=== PATIENT | male | born 1990 | race Caucasian/White ===

== ENCOUNTER 2017-10-14 13:32 | Observation (INO) | payer OTHER ==
[2017-10-14] MEDS ORDERED: NS 1,000 ML IV ONE (13:53)
[2017-10-14] MEDS ORDERED: HYDROmorphONE/DILAUDID 1 MG/ML INJ IVP ONE ×2 (13:53→15:46)
--- NOTE | 2017-10-14 13:53 | EDPHY ---
H & P Stated Complaint: Abscess - Drained 10/12 on Antibiotics Time Seen by Provider: 10/14/17 13:40 HPI/ROS: CHIEF COMPLAINT: Peritonsillar abscess HISTORY OF PRESENT ILLNESS: The patient is a 27-year-old man with no significant past medical history comes to the emergency department complaining of peritonsillar abscess. He was seen 2 days ago at [facility] Emergency Department. He had it aspirated at that time and was started on clindamycin. He states that it is worsening again. He does not have fever. He has significant pain and will not talk, eat or drink. He does not have any trouble breathing and is handling his secretions. REVIEW OF SYSTEMS: Constitutional: denies: chills, fever, recent illness, recent injury EENTM: See HPI Respiratory: denies: cough, shortness of breath Cardiac: denies: chest pain, irregular heart rate, lightheadedness, palpitations Gastrointestinal/Abdominal: denies: abdominal pain, diarrhea, nausea, vomiting, blood streaked stools Genitourinary: denies: dysuria, frequency, hematuria, pain Musculoskeletal: denies: joint pain, muscle pain Skin: denies: lesions, rash, jaundice, bruising Neurological: denies: headache, numbness, paresthesia, tingling, dizziness, weakness Hematologic/Lymphatic: denies: blood clots, easy bleeding, easy bruising Immunologic/allergic: denies: HIV/AIDS, transplant EXAM: GENERAL: Well-appearing, well-nourished and in no acute distress. HEAD: Atraumatic, normocephalic. EYES: Pupils equal round and reactive to light, extraocular movements intact, sclera anicteric, conjunctiva are normal. ENT: TMs normal, nares patent, difficult time opening mouth. Right swollen erythematous tonsillar pillars with 3 puncture dykes visible. No drainage. NECK: Normal range of motion, supple without lymphadenopathy or JVD. LUNGS: Breath sounds clear to auscultation bilaterally and equal. No wheezes rales or rhonchi. HEART: Regular rate and rhythm without murmurs, rubs or gallops. ABDOMEN: Soft, nontender, normoactive bowel sounds. No guarding, no rebound. No masses appreciated. BACK: No CVA tenderness, no spinal tenderness, step-offs or deformities EXTREMITIES: Normal range of motion, no pitting or edema. No clubbing or cyanosis. NEUROLOGICAL: Cranial nerves II through XII grossly intact. Normal speech, normal gait. 5/5 strength, normal movement in all extremities, normal sensation PSYCH: Normal mood, normal affect. SKIN: Warm, dry, normal turgor, no visible rashes or lesions. Source: Patient Exam Limitations: No limitations - Personal History Current Tetanus Diphtheria and Acellular Pertussis (TDAP): Yes - Medical/Surgical History Hx Asthma: Yes Hx Chronic Respiratory Disease: No Hx Diabetes: No Hx Cardiac Disease: No Hx Renal Disease: No Hx Cirrhosis: No Hx Alcoholism: No Hx HIV/AIDS: No Hx Splenectomy or Spleen Trauma: No Other PMH: med hx-Abscess. surg-left shoulder,wisdom teeth - Family History Significant Family History: No pertinent family hx - Social History Smoking Status: Never smoked Alcohol Use: Sober Drug Use: None Constitutional: Initial Vital Signs Temperature (C) 36.5 C 10/14/17 13:35 Heart Rate 69 10/14/17 13:35 Respiratory Rate 18 10/14/17 13:35 Blood Pressure 157/94 H 10/14/17 13:35 O2 Sat (%) 95 10/14/17 13:35 O2 Delivery Mode Room Air Allergies/Adverse Reactions: No Known Allergies Allergy (Verified 06/08/14 12:48) Home Medications: Medication Instructions Recorded Clindamycin HCl [Clindamycin] 300 mg PO TID 10/14/17 Herbals/Supplements -Info Only 1 ea PO DAILY 10/14/17 Multivitamins [Multivitamin (*)] 1 each PO DAILY 10/14/17 Medical Decision Making - Diagnostics Imaging Results: Imaging Impressions Neck CT 10/14/17 14:05 Impression: 1. Right peritonsillar abscess resulting in moderate mass effect upon the airway. 2. No extension into the retropharyngeal space or involvement of the epiglottis. Findings discussed with Emergency Department physician, Quique Castillo, at 1520 hours 10/14/2017. Imaging: Discussed imaging studies w/ call or contact centre operator Radiologist ED Course/Re-evaluation: I spoke with Karen Grove the PA on for Dr. Mitchell. She will come to evaluate the patient in the ER. She requests clindamycin IV and Decadron and pain medication. 2:05 p.m. Karen Grove evaluated the patient is requesting a CT scan before drainage to evaluate whether not the patient will require OR. 3:20 p.m. I discussed the CT results with Karen Grove who will come to I&D. 3:50 p.m. the patient was I&D by Dr. Mitchell. A significant amount of purulence obtained. They recommended admission to the hospital for IV clindamycin Q 6 and Decadron 10 mg q.8 hours. 4 p.m. I discussed the case with Dr. Conner who agreed to admit. Differential Diagnosis: Partial list of the Differential diagnosis considered include but were not limited to; abscess, phlegmon and although unlikely based on the history and physical exam, I also considered foreign body, sepsis. - Data Points Laboratory Results: Laboratory Results 10/14/17 14:01 10/14/17 14:01 10/14/17 10/14/17 14:01 14:01 WBC 12.18 10^3/uL H 10^3/uL (3.80-9.50) RBC 4.84 10^6/uL 10^6/uL (4.40-6.38) Hgb 15.8 g/dL g/dL (13.7-17.5) Hct 43.9 % % (40.0-51.0) MCV 90.7 fL fL (81.5-99.8) MCH 32.6 pg pg (27.9-34.1) MCHC 36.0 g/dL g/dL (32.4-36.7) RDW 12.1 % % (11.5-15.2) Plt Count 277 10^3/uL 10^3/uL (150-400) MPV 8.8 fL fL (8.7-11.7) Neut % (Auto) 77.0 % H % (39.3-74.2) Lymph % (Auto) 11.2 % L % (15.0-45.0) [place] % (Auto) 10.0 % % (4.5-13.0) Eos % (Auto) 0.7 % % (0.6-7.6) Baso % (Auto) 0.7 % % (0.3-1.7) Nucleat RBC Rel Count 0.0 % % (0.0-0.2) Absolute Neuts (auto) 9.37 10^3/uL H 10^3/uL (1.70-6.50) Absolute Lymphs (auto) 1.36 10^3/uL 10^3/uL (1.00-3.00) Absolute Monos (auto) 1.22 10^3/uL H 10^3/uL (0.30-0.80) Absolute Eos (auto) 0.09 10^3/uL 10^3/uL (0.03-0.40) Absolute Basos (auto) 0.09 10^3/uL 10^3/uL (0.02-0.10) Absolute Nucleated RBC 0.00 10^3/uL 10^3/uL (0-0.01) Immature Gran % 0.4 % % (0.0-1.1) Immature Gran # 0.05 10^3/uL 10^3/uL (0.00-0.10) Sodium 145 mEq/L H mEq/L (134-144) Potassium 3.9 mEq/L mEq/L (3.5-5.2) Chloride 104 mEq/L mEq/L (97-110) Carbon Dioxide 27 mEq/l mEq/l (22-31) Anion Gap 14 mEq/L mEq/L (8-16) BUN 21 mg/dL mg/dL (7-23) Creatinine 0.9 mg/dL mg/dL (0.7-1.3) Estimated GFR > 60 Glucose 86 mg/dL mg/dL (70-100) Calcium 9.4 mg/dL mg/dL (8.5-10.4) Medications Given: Discontinued Medications Dexamethasone (Decadron Injection) 10 mg IVP EDNOW ONE Stop: 10/14/17 13:59 Last Admin: 10/14/17 14:10 Dose: 10 mg Hydromorphone HCl (Dilaudid) 1 mg IVP EDNOW ONE Stop: 10/14/17 13:54 Last Admin: 10/14/17 14:04 Dose: 1 mg Hydromorphone HCl (Dilaudid) 1 mg IVP EDNOW ONE Stop: 10/14/17 15:47 Last Admin: 10/14/17 15:49 Dose: 1 mg Sodium Chloride (Ns) 1,000 mls @ 0 mls/hr IV ONCE ONE; Wide Open PRN Reason: Protocol Stop: 10/14/17 13:54 Last Admin: 10/14/17 14:03 Dose: 1,000 mls Clindamycin Phosphate/Dextrose (Cleocin 900 Mg (Premix)) 50 mls @ 100 mls/hr IV EDNOW ONE PRN Reason: Protocol Stop: 10/14/17 14:27 Last Admin: 10/14/17 14:12 Dose: 50 mls Ondansetron HCl (Zofran) 4 mg IVP EDNOW ONE Stop: 10/14/17 13:58 Last Admin: 10/14/17 14:04 Dose: 4 mg Departure - Departure Disposition: [facility] Acute Clinical Impression: Peritonsillar abscess Condition: Fair
[2017-10-14] MEDS ORDERED: HYDROmorphONE/DILAUDID 1 MG/ML INJ ONE (13:54)
[2017-10-14] MEDS ORDERED: ONDANSETRON 4 MG/2 ML VIAL ONE (13:55)
[2017-10-14] MEDS ORDERED: ONDANSETRON 4 MG/2 ML VIAL IVP ONE (13:57)
[2017-10-14] MEDS ORDERED: CLINDAMYCIN 900 MG/DEXTROSE 50 ML IV ONE (13:58)
[2017-10-14] MEDS ORDERED: DEXAMETHASONE 10 MG/ML VIAL IVP ONE (13:58)
[2017-10-14 14:12] LABS: % IMMATURE GRANULYOCYTES 0.4 % (0.0-1.1); ABSOLUTE IMMATURE GRANULOCYTES 0.05 10^3/uL (0.00-0.10); ADD DIFF? NO; ADD MORPH? NO; ADD SCAN? NO; ATYPICAL LYMPHOCYTE FLAG 10 (0-99); FRAGMENT RBC FLAG 0 (0-99); HEMATOCRIT 43.9 % (40.0-51.0); HEMOGLOBIN 15.8 g/dL (13.7-17.5); LEFT SHIFT FLG 0 (0-99); LIPEMIA HEMOLYSIS FLAG 90 (0-99); MEAN CELL HEMOGLOBIN 32.6 pg (27.9-34.1); MEAN CELL VOLUME 90.7 fL (81.5-99.8); MEAN PLATELET VOLUME 8.8 fL (8.7-11.7); PLATELET CLUMPS FLAG 0 (0-99); PLATELET COUNT 277 10^3/uL (150-400); RED BLOOD CELL COUNT 4.84 10^6/uL (4.40-6.38); RED CELL DISTRIBUTION WIDTH 12.1 % (11.5-15.2)
[2017-10-14 14:23] LABS: ANION GAP 14 mEq/L (8-16); CALCIUM 9.4 mg/dL (8.5-10.4); CARBON DIOXIDE 27 mEq/l (22-31); CHLORIDE 104 mEq/L (97-110); CREATININE 0.9 mg/dL (0.7-1.3); GLOMERULAR FILTRATION RATE > 60; GLUCOSE 86 mg/dL (70-100); POTASSIUM 3.9 mEq/L (3.5-5.2); SODIUM 145 mEq/L (134-144)
[2017-10-14] MEDS ORDERED: IOPAMIDOL (ISOVUE-300) 100 ML BTL ONE (14:29)
[2017-10-14] MEDS ORDERED: ONDANSETRON 4 MG/2 ML VIAL IVP PRN (17:14)
[2017-10-14] MEDS ORDERED: KETOROLAC 30 MG/1 ML SDV IVP PRN (17:14)
[2017-10-14] MEDS ORDERED: PROMETHAZINE HCL 25 MG/ML INJ IVP PRN (17:14)
[2017-10-14] MEDS ORDERED: ONDANSETRON DISINTEGRATING 4 MG TAB PO PRN (17:14)
[2017-10-14] MEDS ORDERED: HYDROmorphONE/DILAUDID 1 MG/ML INJ IVP PRN (17:14)
[2017-10-14] MEDS ORDERED: ACETAMINOPHEN 650 MG/20.3 ML UDCUP PO PRN (17:17)
--- NOTE | 2017-10-14 17:57 | GHP ---
[f rep st] HISTORY AND PHYSICAL DATE OF ADMISSION: 10/14/2017 CHIEF COMPLAINT: Sore throat. HISTORY OF PRESENT ILLNESS: The patient is a 27-year-old male with no significant past medical histo ry who presents to the emergency department with sore throat and dysphagia. He states his symptoms s tarted approximately 1 week ago while he was traveling in [place]. At that time, he was seen in a medical clinic and started on amoxicillin. When he returned to the [facility], his symptoms worsened, an d he began having difficulty swallowing. He denies fevers. He presented to [facility] Emergency Department 2 days ago, and he was diagnosed with a peritonsillar abscess, which was subsequently melissa blum. He was started on clindamycin. Unfortunately, his symptoms worsened again with increased throa t pain and difficulty swallowing and difficulty talking. Again, he denies fevers. He does report si ck contact in his girlfriend, who had a sore throat illness recently. She tested negative for strep. He otherwise denies headache, neck pain, nausea, vomiting, diarrhea, or abdominal pain. In the emergency department, a neck CT was performed, which revealed a right peritonsillar abscess, r esulting in a moderate mass effect upon the airway. There was no extension in the retropharyngeal sp amandeep or involvement of the epiglottis. ENT was consulted and performed incision and drainage in the e mergency department. The patient feels much better after this. He will be admitted to the hospital for ongoing IV antibiotics, Decadron and observation. PAST MEDICAL HISTORY: Asthma. MEDICATIONS: None. ALLERGIES: No known drug allergies. PAST SURGICAL HISTORY: Left shoulder surgery and wisdom teeth extraction. FAMILY HISTORY: Reviewed and unremarkable. SOCIAL HISTORY: The patient works as an senior java software engineer. He is a lifetime nonsmoker. He denies alcohol or drug use. He is quite active and is a runner. REVIEW OF SYSTEMS: A 10-point review of systems was performed and is negative, except as per HPI. OBJECTIVE: VITAL SIGNS: Temperature is 37 degrees, blood pressure 118/74, heart rate 65, respirator y rate 19. He is 97% on room air. GENERAL: The patient is awake, alert, and oriented, in no acute distress. HEENT: Head is atraumati c, normocephalic. Pupils equal, round, reactive to light. Extraocular movements intact. Oropharynx is clear. Mucous membranes are moist. He has a large right peritonsillar abscess, which is open, w ith visible purulence. He has mild right anterior cervical lymphadenopathy. LUNGS: Clear to auscul tation bilaterally. HEART: Regular rate and rhythm, without murmur. ABDOMEN: Soft, nondistended, nontender, with normoactive bowel sounds. EXTREMITIES: Without cyanosis, clubbing, or edema. NEURO LOGIC: Exam is grossly nonfocal. LABORATORY DATA: CBC a reveals white blood cell count of 12.2, with 77% neutrophils. Basic metaboli c panel reveals a sodium of 145. Other electrolytes are normal. Creatinine is normal. Neck CT performed in the emergency department, results described above. ASSESSMENT AND PLAN: The patient is a 27-year-old male who is otherwise healthy, presents to the [facility] department with recurrent right peritonsillar abscess requiring incision and drainage. 1. Right peritonsillar abscess. He is status post I and D by ENT in the emergency department. Thou gh he is afebrile with stable vital signs, he does have an elevated white count and appears ill. Rashard morris send blood cultures. I will start him on IV Unasyn, as well as IV Decadron. Will give IV Toradol, as well as Tylenol with p.r.n. Dilaudid for pain control. If his condition is improved, he could micha sims transition to oral Augmentin at discharge. ENT has consulted. The patient was given a clear li quid diet, along with IV fluids. He will be observed in the medical-surgical unit overnight. 2. Deep vein thrombosis prophylaxis. Patient is low risk. Will place SCDs. DISPOSITION: Patient admitted to observation status. He could be a candidate for discharge home aleks calvin if his condition remains stable. /[id number]/MODL
[2017-10-14] MEDS: D5W 1/2 NS W/ 20 KCl/L 1,000 ML IV SCH (18:12)
[2017-10-14] MEDS: AMPICILLIN/SULBACTAM 3 GM in NS 100 ML IV SCH ×2 (18:12→23:52)
[2017-10-14] MEDS: DEXAMETHASONE 10 MG/ML VIAL IVP SCH (22:23)
[2017-10-15] MEDS: D5W 1/2 NS W/ 20 KCl/L 1,000 ML IV SCH (02:48)
--- NOTE | 2017-10-15 03:04 | GCON ---
[f rep st] CONSULTATION DATE OF CONSULTATION: 10/14/2017 HISTORY OF PRESENT ILLNESS: The patient is a 27-year-old gentleman who presents to the emergency room for evaluation of a right peritonsillar abscess. The patient states that 2 days ago he developed a significant right-sided sore throat. He was seen at [facility] where it sounds like an aspiration was done of a right peritonsillar abscess. He received clindamycin and has been taking clindamycin t.i.d. He notes that he felt okay yesterday and then today he got significantly worse. The patient is very uncomfortable feeling, has trismus, and significant discomfort. The patient does relay a history of having a peritonsillar abscess that required drainage previously. Otherwise, he has not had any other significant history of tonsillitis. PAST MEDICAL HISTORY: Asthma. PAST SURGICAL HISTORY: Left shoulder and wisdom teeth. ALLERGIES: No known drug allergies. FAMILY HISTORY: Noncontributory. SOCIAL HISTORY: Nonsmoker. PHYSICAL EXAMINATION: GENERAL: The patient is alert and oriented lying in bed. HEENT: Atraumatic and normocephalic. Ears are clear. Nose is clear. Oral cavity and oropharynx reveal a significant right peritonsillar abscess with erythema and 4+ tonsils. The left tonsil appears normal. NECK: 2+ adenopathy. IMAGING: The patient appeared very ill and we sent him for a CAT scan of his neck, which revealed a 2 x 2.5 cm abscess localized to just the tonsil with no retropharyngeal component. PROCEDURE: Performed by Dr. Mitchell - The patient was then prepped for a peritonsillar I and D. The area was anesthetized with lidocaine plus epinephrine. Using a #15 blade, an incision was made and purulence was expressed. The patient tolerated the procedure well. ASSESSMENT AND PLAN: Right peritonsillar abscess. The patient is currently receiving 900 mg of clindamycin and was given 10 mg of Decadron. He will continue with the Decadron every 8 hours and clindamycin 600 mg 4 times daily. I will come by tomorrow, mid-morning, to see the patient and, ideally, he should be able to be discharged at that point in time. Please consult us if you have any further questions. /[id number]/MODL MTDD
[2017-10-15 04:35] LABS: % IMMATURE GRANULYOCYTES 0.4 % (0.0-1.1); ABSOLUTE IMMATURE GRANULOCYTES 0.04 10^3/uL (0.00-0.10); ADD DIFF? NO; ADD MORPH? NO; ADD SCAN? NO; ATYPICAL LYMPHOCYTE FLAG 10 (0-99); FRAGMENT RBC FLAG 0 (0-99); HEMATOCRIT 42.1 % (40.0-51.0); HEMOGLOBIN 14.4 g/dL (13.7-17.5); LEFT SHIFT FLG 0 (0-99); LIPEMIA HEMOLYSIS FLAG 90 (0-99); MEAN CELL HEMOGLOBIN 31.6 pg (27.9-34.1); MEAN CELL HEMOGLOBIN CONCENTR. 34.2 g/dL (32.4-36.7); MEAN CELL VOLUME 92.3 fL (81.5-99.8); PLATELET CLUMPS FLAG 0 (0-99); PLATELET COUNT 283 10^3/uL (150-400); RED BLOOD CELL COUNT 4.56 10^6/uL (4.40-6.38); RED CELL DISTRIBUTION WIDTH 11.9 % (11.5-15.2)
[2017-10-15 05:03] LABS: ANION GAP 12 mEq/L (8-16); CALCIUM 9.2 mg/dL (8.5-10.4); CARBON DIOXIDE 26 mEq/l (22-31); CHLORIDE 104 mEq/L (97-110); CREATININE 0.8 mg/dL (0.7-1.3); GLOMERULAR FILTRATION RATE > 60; GLUCOSE 143 mg/dL (70-100); POTASSIUM 4.8 mEq/L (3.5-5.2); SODIUM 142 mEq/L (134-144)
[2017-10-15] MEDS: DEXAMETHASONE 10 MG/ML VIAL IVP SCH ×2 (06:14→13:24)
[2017-10-15] MEDS: AMPICILLIN/SULBACTAM 3 GM in NS 100 ML IV SCH ×2 (06:14→12:13)
[2017-10-15 08:21] VITALS: RESP 18
[2017-10-15 12:11] VITALS: BP 132/80; PULSE 67; TEMP 98.4; O2SAT 95
--- NOTE | 2017-10-15 12:29 | SOAPPROG ---
SERGIO Progress Note Assessment/Plan: pt with CHEMICAL TECHNICIAN left side. He is feeling tremendously better today. Able to eat and talk. O- tonsil- improved, no fullnesss neck- soft Plan: pt s/p I&D left CHEMICAL TECHNICIAN. He is doing much better. He can be discharged on Clinda qid and decadron 8mg x 2 d, 4mgx2d. He will need to have his tonisls removed at his convenience as this was his second abscess. 10/15/17 12:26 Objective: Vital Signs Temp Pulse Resp BP Pulse Ox 36.9 C 67 18 132/80 H 95 10/15/17 12:09 10/15/17 12:09 10/15/17 12:09 10/15/17 12:09 10/15/17 12:09 Laboratory Results 10/15/17 04:13 10/15/17 04:13 10/14/17 10/15/17 10/16/17 05:59 05:59 05:59 Intake Total 2717 Balance 2717 - Pending Discharge Pending Discharge Within 24 Hours: Yes Pending Discharge Date: 10/16/17 Pending Discharge Time: 11:00 ICD10 Worksheet Patient Problems: Problems Problem Status Onset Peritonsillar abscess Acute
--- NOTE | 2017-10-15 13:53 | PDDCSUM ---
Discharge Summary Discharge Summary: 27 yo male admitted with recurrence of right tonsillar abscess. The first time he was seen at a separate E.D., I&D was performed, and he was started on Clindamycin. Sxs recurred and he presented here. He was admitted and started on IV abx. I&D was performed by Dr. Grove in the E.D. and she provided consultation. Dexamethasone was given. Overnight he has improved and now cleared for discharge per Dr. Grove Steroids will be tapered He will be transitioned to Augmentin. Clinda was held as he had recurrence while on this abx. He will f/u with ENT to discuss elective tonsillectomy DDX: -Right tonsillar abscess Exam: VSS NAD AAOX3 RRR CTAB S//NT/ND MEDS: SEE ABOVE. AUGMENTIN F/U: PER ABOVE TOTAL TIME SPENT ON DISCHARGE IS 35 MINUTES
--- NOTE | 2017-10-15 14:49 | ASDISCHSUM ---
Discharge Information Plan Status: Medically Cleared to Leave: Discharge Date: CM D/C Disposition: ADT D/C Disposition:Home, Routine, Self-Care Projected Discharge Date: Transportation at D/C: Discharge Delay Reason: Follow-Up Date: Discharge Slot: Final Diagnosis: Placement Information Patient Contact Information Contact Name:RUPALI Relationship:Father Address:[address] [place] [address] City:[facility] Phone: State/Zip Code:[place] [address] Email: Financial Information Financial Class:HMO and PPO Plans Primary Plan Desc:[facility] Primary Plan Number:[id number] Secondary Plan Desc: Secondary Plan Number: Assessment Information [facility] CM Progress Note CM Note CM Note Notes: Pt admitted with peritonsilar abscess will DC today with no needs. Date Signed: 10/15/2017 02:48 PM Electronically Signed By:Calli Darden LCSW Intervention Information
== END 2017-10-15 14:49 | disposition home or self-care (01) ==
LOC: F1N 17:43
PROVIDERS: ADMIT Hospitalist; ATTEND Family Medicine
PROC: 0C9P0ZZ Drainage of Tonsils, Open Approach (ICD-10-PCS; principal; 2017-10-14)
PROC: 3E03329 Introduction of Other Anti-infective into Peripheral Vein, Percutaneous Approach (ICD-10-PCS; 2017-10-14)
PROC: 3E0337Z Introduction of Electrolytic and Water Balance Substance into Peripheral Vein, Percutaneous Approach (ICD-10-PCS; 2017-10-14)
DX: J36 Peritonsillar abscess (principal); E86.9 Volume depletion, unspecified
CPT/HCPCS: 42700; 70491; 96361; 96374; 96375; 96376; 99285; G0378; J0295; J1100; J1170; J2405; Q9967